=== PATIENT | female | born 1970 | race Caucasian/White ===

== ENCOUNTER → 2019-07-11 | Outpatient (CLI) | payer SELFPAY ==
[~2019-07-11] MED LIST: CATHETER FLUSH 10 ML SYR IV PRN; HOLD METFORMIN - RECEIVED CONTRAST 20 ML VIAL IV SCH; IOHEXOL 350 MG/ML 100 ML (OMNIPAQUE 350) VIAL IV ONE; NS 100 ML (IVPB) BAG IV ONE
--- NOTE | 2019-07-11 13:20 | Diagnostic Imaging Report ---
PROCEDURE: US Non-ob pelvis comp/trans. TECHNIQUE: Multiple realtime grayscale images were obtained of the pelvis in various projections endovaginally. Transabdominal imaging was also performed. INDICATION: Abdominal mass. FINDINGS: The report from the previous pelvic ultrasound exam performed on 03/28/2017 is not available. In reviewing that exam, the uterus did not appear to be enlarged measuring approximately 8.5 x 4.9 cm. There was a 1.3 x 1.7 cm hypoechoic area along the posterior aspect of the lower uterine segment. This may have represented a fibroid. The ovaries were generally unremarkable. There was a 1.8 x 1.9 cm cyst associated with the right ovary. In the interval since the prior study, a marked change has occurred. There is now a large 26.0 x 12.0 x 20.0 cm mass arising from the pelvis and extending into the lower abdomen. This mass may be related to the uterus itself. The possibility that this is originating from one of the ovaries should also be considered. Neither ovary could be identified on this exam. There is no other mass identified. A small amount of free fluid was seen in the left adnexa. IMPRESSION: There is now a large mass extending from the pelvis into the lower abdomen. This could be arising from the uterus or the ovaries. This mass should be considered neoplastic until proven otherwise. CT of the abdomen and pelvis would be recommended for further study. Dictated by: Dictated on workstation # [id number]
--- NOTE | 2019-07-11 13:28 | Diagnostic Imaging Report ---
PROCEDURE: CT abdomen and pelvis with contrast. TECHNIQUE: Multiple contiguous axial images were obtained through the abdomen and pelvis after administration of intravenous contrast. Auto Exposure Controls were utilized during the CT exam to meet ALARA standards for radiation dose reduction. INDICATION: Abdominal mass. COMPARISON: There are no prior CT examinations available for comparison. The pelvic ultrasound exam performed earlier today noted a large mass extending from the pelvis into the lower abdomen. On this study, that mass is again identified. The mass measures approximately 13.5 x 18.4 x 22.6 cm in maximum transverse AP and longitudinal dimensions. The sagittal images suggest that this is arising from the uterus and this may represent endometrial carcinoma or some type of uterine carcinoma. At the apex of the mass, there appears to be the uterine fundus with a small 2.1 x 3.1 cm diminished density along the left lateral aspect of the fundus. I suspect that this is a fibroid. Neither ovary could be identified. The bladder is compressed and displaced to the right. There is no free fluid collection identified. The appendix is not well visualized but there are no indirect signs of acute appendicitis. There is cholelithiasis but there is no evidence for acute cholecystitis. The liver is homogeneous and not enlarged. The spleen, pancreas, adrenals, kidneys, aorta, and inferior vena cava show no sign of an acute abnormality. There is mild prominence of the renal pelvis. This could be related to extrinsic compression by the mass. Both kidneys do show excretion of the contrast, however. The stomach is not well distended and consequently difficult to assess. The lung bases are clear. The bone windows show no evidence for fracture or for destructive lesion. There is no obvious breast mass. IMPRESSION: 1. There is a large mass arising from the pelvis and extending into the lower abdomen. This appears to be originating from the uterus and most likely this is related to either an endometrial or uterine carcinoma. 2. There is no other evidence for neoplastic disease. 3. There is no acute abnormality of the abdomen or pelvis. 4. There is cholelithiasis without evidence for acute cholecystitis. 5. These results were discussed with Dr. Dominguez at the time of this dictation. Dictated by: Dictated on workstation # [id number]
== END ==
LOC: RAD 10:16
PROVIDERS: ATTEND Family Medicine
DX: K80.20 Calculus of gallbladder without cholecystitis without obstruction (principal); R19.00 Intra-abdominal and pelvic swelling, mass and lump, unspecified site
CPT/HCPCS: 74177; 76830; 76856

== ENCOUNTER → 2020-07-10 | Outpatient (CLI) | payer OTHER ==
--- NOTE | 2020-07-10 09:27 | Diagnostic Imaging Report ---
INDICATION: RUQ PAIN TECHNIQUE: Multiple grayscale sonographic images were obtained of the right upper quadrant of the abdomen. CORRELATION STUDY: None FINDINGS: LIVER: There is uniform echotexture within the visualized portions of the liver. There is normal, hepatopedal direction of flow within the main portal vein. Liver length 16.5 cm. GALLBLADDER: Multiple shadowing gallstones are present. These are reported as mobile. No significant gallbladder wall thickening or pericholecystic fluid. COMMON BILE DUCT: Nondilated at 0.5 cm. PANCREAS: Visualized portions appearing unremarkable. AORTA/IVC: Not well visualized. RIGHT KIDNEY: 10.8 x 4.1 x 4.1 cm. No hydronephrosis. OTHER: None. IMPRESSION: 1. Cholelithiasis. No sonographic evidence to suggest acute cholecystitis. Dictated by: Dictated on workstation # [id number]
== END ==
LOC: RAD 08:11
PROVIDERS: ATTEND Family Medicine
DX: K80.20 Calculus of gallbladder without cholecystitis without obstruction (principal)
CPT/HCPCS: 76705

== ENCOUNTER → 2020-07-30 | Outpatient (CLI) ==
--- NOTE | 2020-07-30 17:31 | NUR ---
Called [phone] with positive COVID results.
== END ==
LOC: LABNPT 05:26 → MERGE 05:26
PROVIDERS: ATTEND Surgery
DX: U07.1 COVID-19 (principal)
CPT/HCPCS: 87635

== ENCOUNTER → 2021-06-07 | Outpatient (CLI) | payer OTHER ==
--- NOTE | 2021-06-08 12:10 | Diagnostic Imaging Report ---
Indication: Routine screening. Comparison is made with prior mammogram from 04/09/2010. 2-D and 3-D bilateral screening mammography was performed with CAD. Both breasts are heterogeneously dense, limiting the sensitivity of mammography. The parenchymal pattern is stable. Occasional benign calcifications are noted. No mass or malignant-appearing microcalcifications are seen. Axillae are unremarkable. IMPRESSION: BI-RADS Category 2 No mammographic features suspicious for malignancy are identified. ACR BI-RADS Category 2: Benign findings. Result letter will be mailed to the patient. Note: At least 10% of breast cancer is not imaged by mammography. Dictated by: Dictated on workstation # [id number]
== END ==
LOC: RAD 15:20
PROVIDERS: ATTEND Family Medicine
DX: Z12.31 Encounter for screening mammogram for malignant neoplasm of breast (principal)
CPT/HCPCS: 77063; 77067

== ENCOUNTER → 2022-09-05 | Outpatient (CLI) | payer OTHER ==
--- NOTE | 2022-09-05 16:09 | Diagnostic Imaging Report ---
INDICATION: Routine screening. Comparison is made with prior mammogram of 06/07/2021. 2-D and 3-D bilateral screening mammography was performed with CAD. Both breasts are heterogeneously dense, limiting the sensitivity of mammography. The parenchymal pattern is stable. No mass or malignant-appearing microcalcifications are seen. Axillae are unremarkable. IMPRESSION: No mammographic features suspicious for malignancy are identified. ACR BI-RADS Category 1: Negative. Result letter will be mailed to the patient. Note: At least 10% of breast cancer is not imaged by mammography. BI-RADS Category 1 Dictated by: Dictated on workstation # [id number]
== END ==
LOC: RAD 15:45
PROVIDERS: ATTEND Family Medicine
DX: Z12.31 Encounter for screening mammogram for malignant neoplasm of breast (principal)
CPT/HCPCS: 77063; 77067